=== PATIENT | male | born 1975 ===

== ENCOUNTER 2025-02-17 16:37 | Emergency (ER) | payer OTHER, SELFPAY ==
--- NOTE | ~2025-02-17 | XR_ITS ---
XR chest 1V portable 02/17/2025 17:08 Indication: Asthma. Shortness of breath. Procedure: AP portable chest Comparison: No prior studies for comparison. Findings: Mild elevation left diaphragm. Subtle interstitial infiltrates of the left lung base. Heart size normal. Right lung clear. No significant effusion or pneumothorax. No acute osseous abnormality. Impression: 1: Subtle left basilar interstitial infiltrates, suspicious for pneumonia. Reviewed, dictated and finalized at location O. Impression: 1: Subtle left basilar interstitial infiltrates, suspicious for pneumonia.
--- NOTE | 2025-02-17 16:55 | ED_ITS ---
HPI - General Adult General Chief complaint: Shortness of Breath/Dyspnea Stated complaint: dyspnea Time Seen by Provider: 02/17/25 16:50 History of Present Illness HPI narrative: This is a 49-year-old male presenting with difficulty breathing. Patient was at work when he suddenly developed acute onset of wheezing. EMS was called and he received breathing trauma treatment in route with significant improvement. Patient has albuterol inhaler at home but is not on maintenance therapy. No fevers chills chest pain difficulty breathing or your eye symptoms. After the initial interview the patient asked if he could get a ride back to [place]. Related Data Allergies Allergy/AdvReac Type Severity Reaction Status Date / Time No Known Allergies Allergy Verified 02/17/25 16:58 Exam Narrative: APPEARANCE: No apparent distress. Head: atraumatic. EYES: EOMI, NOSE: Atraumatic NECK: Trachea midline RESPIRATORY: Mild wheezing, speaking in full sentences, no dyspnea CARDIOVASCULAR: RRR, ABDOMINAL: Non-distended MUSCULOSKELETAl: No obvious deformities NEURO: Alert. Moving 4/4 extremities SKIN:: Warm, dry. Normal color PSYCHIATRIC: Normal affect Course Vital Signs Vital signs: Vital Signs Pulse Rate 88 02/17/25 17:06 Respiratory Rate 02/17/25 17:06 Temperature 98.2 F 02/17/25 17:08 Pulse Rate 90 02/17/25 17:20 Respiratory Rate 20 02/17/25 17:20 Blood Pressure 131/100 H 02/17/25 17:13 Pulse Oximetry 100 02/17/25 17:12 Oxygen Delivery Room Air 02/17/25 17:12 Medical Decision Making [facility] Narrative Medical decision making narrative: -Course: 49-year-old male presenting for difficulty breathing. Very mild wheezing on exam after he received breathing treatment from EMS. Patient given breathing treatment and dexamethasone. A chest x-ray showed a very subtle infiltrate in left lower lobe which may be an early pneumonia. Patient will be treated with course of antibiotics. Overall the patient is very well-appearing with stable vital signs. He is afebrile. Patient has good candidate for outpatient management. Discharged primary care follow-up. Given return precautions. -DDX includes but is not limited to: Asthma, URI, pneumonia Vital Signs Vital Signs: Vital Signs Pulse Rate 88 02/17/25 17:06 Respiratory Rate 20 02/17/25 17:06 Temperature 98.2 F 02/17/25 17:08 Pulse Rate 90 02/17/25 17:20 Respiratory Rate 20 02/17/25 17:20 Blood Pressure 131/100 H 02/17/25 17:13 Pulse Oximetry 100 02/17/25 17:12 Oxygen Delivery Room Air 02/17/25 17:12 Discharge Plan Discharge Clinical Impression: Asthma, PNA (pneumonia) Patient Disposition: Home Condition: Stable Instructions: Antibiotic Form, Asthma (ED) Additional Instructions: You were seen in the ED for an asthma exacerbation. Your x-ray showed possible pneumonia in the left lower lobe. Please complete the antibiotics prescribed as instructed. Please follow-up with your primary care physician for further management. Please use the albuterol inhaler prescribed is not needed. Please return if you develop difficulty breathing. Patient Language: Unknown Prescriptions: New amoxicillin-pot clavulanate 875-125 mg tablet 1 tablet PO Q12H Qty: 20 0RF doxycycline hyclate 100 mg capsule 100 mg PO DAILY Qty: 20 0RF albuterol sulfate [Ventolin HFA] 90 mcg/actuation HFA aerosol inhaler 1 inh inhalation QID PRN (Reason: shortness of breath or wheezing) Qty: 8.5 0RF Follow-up/Referrals: UNKNOWN,DOCTOR [Primary Care Provider]
[2025-02-17 17:06] VITALS: PULSE 88; RESP 20
[2025-02-17] MEDS: IPRATROPIUM 0.5 MG/ALBUTEROL SULFATE 2.5 MG AMPUL.NEB 3 ML 6 ML INHALATION (17:06)
[2025-02-17 17:08] VITALS: PULSE 85; RESP 18; TEMP 36.8; O2SAT 100
[2025-02-17 17:12] VITALS: O2SAT 100
[2025-02-17 17:13] VITALS: BP 131/100
--- NOTE | 2025-02-17 17:13 | PC.NURSE ---
Pt states he does have HTN and did not take his medication today
[2025-02-17] MEDS: dexAMETHasone SOD PHOS INJ 10 MG/ML 1 ML VIAL IM (17:14)
[2025-02-17 17:20] VITALS: PULSE 90; RESP 20
[2025-02-17] MEDS: DOXYCYCLINE HYCLATE 100 MG TABLET PO (18:03)
== END 2025-02-17 18:11 | disposition home or self-care (01) ==
LOC: ANHED 17:42
PROVIDERS: Emergency Provider Emergency Medicine
DX: J18.9 Pneumonia, unspecified organism (principal); J45.901 Unspecified asthma with (acute) exacerbation
CPT/HCPCS: 71045; 94640; 96372; 99283; A9270; J1100